=== PATIENT | male | born 1970 | race Native Hawaiian/Other Pacific Islander ===

== ENCOUNTER 2019-07-18 15:34 | Outpatient (CLI) | payer BC | END 2019-07-18 23:59 | LOC: RAD 15:34 | DX: M54.5 Low back pain (principal); M25.551 Pain in right hip; M25.552 Pain in left hip ==

== ENCOUNTER 2020-11-11 14:21 | Outpatient (CLI) | payer BC | END 2020-11-11 22:03 | disposition home or self-care (01) | LOC: RAD 14:21 | PROVIDERS: ATTEND Orthopaedic Surgery | DX: M25.551 Pain in right hip (principal); M25.552 Pain in left hip ==

== ENCOUNTER 2021-12-01 14:45 | Outpatient (CLI) | payer BC | END 2021-12-01 19:17 | disposition home or self-care (01) | LOC: RAD 14:45 | PROVIDERS: ATTEND Physician Assistant | DX: M25.551 Pain in right hip (principal); M25.552 Pain in left hip ==